=== PATIENT | female | born 1995 | race Caucasian/White ===

== ENCOUNTER 2016-07-11 20:41 | Emergency (ER) | payer OTHER ==
[2016-07-11 21:30] VITALS: BP 145/91
[2016-07-11] MEDS ORDERED: Acetaminophen 500 MG Tab PO ONE (22:26)
--- NOTE | 2016-07-11 22:32 | EDM.PDOC ---
ED HPI GENERAL MEDICAL PROBLEM - General Chief Complaint: [employer] Problem Stated Complaint: PAIN Time Seen by Provider: 07/11/16 22:21 Source of Information: Reports: Patient History Limitations: Reports: No Limitations - History of Present Illness INITIAL COMMENTS - FREE TEXT/NARRATIVE: 21 yr old female reporting the 'inside of my uterus hurts' and describes cramping sensation for the past couple of hours. Pt is unsure if she is or not. LMP sometime between 05/29/2016 and 06/05/2016. Not on control and sexually active. Had a Nexplanon implant but was removed September 2015. No vaginal irritation, discharge or other concerns. No meds tried at home for symptoms after started. Unsure if urinary symptoms when asked. Thinks last bowel movement was yesterday PM or this AM; denies any constipation or diarrhea concerns.No fever, chills, nausea or vomiting. Also has right shoulder pain. Started after she arrived in ER. Hurts more with movement and laughing. 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 Onset: Today Duration: Hour(s):, Waxing/Waning Quality: Reports: Other (cramping) Improves with: Reports: Rest Worsens with: Reports: Movement Associated Symptoms: Reports: No Other Symptoms Abdomen Pain Score (Numeric/FACES): 9 - Related Data Allergies Allergy/AdvReac Type Severity Reaction Status Date / Time No Known Allergies Allergy Verified 03/23/15 19:44 Past Medical History HEENT History: Reports: Impaired Vision [employer] History: Reports: Psychiatric History: Reports: Anxiety Social & Family History - Tobacco Use Smoking Status *Q: Never Smoker Second Hand Smoke Exposure: Yes - Caffeine Use Caffeine Use: Reports: Soda - Alcohol Use Days Per Week of Alcohol Use: 0 - Recreational Drug Use Recreational Drug Use: No ED ROS GENERAL - Review of Systems Review Of Systems: ROS reveals no pertinent complaints other than HPI. ED EXAM, RENAL/ - Physical Exam Exam: See Below Exam Limited By: No Limitations General Appearance: Alert, Anxious (speech rate increased and more pt describes symptoms the quicker her rate becomes.) Nose: Normal Inspection Throat/Mouth: Normal Inspection Head: Atraumatic Neck: Normal Inspection, Supple, Full Range of Motion Respiratory/Chest: No Respiratory Distress, Lungs Clear, Normal Breath Sounds Cardiovascular: Regular Rate, Rhythm GI/Abdominal: Normal Bowel Sounds, Soft, No Distention (obese) (Female) Exam: Deferred Back Exam: Normal Inspection, Full Range of Motion Extremities: Normal Inspection, Normal Range of Motion, No Pedal Edema Neurological: Alert, Oriented, Normal Cognition, Normal Gait, No Motor/Sensory Deficits, Inattentive (appears distracted by child in room. ) Psychiatric: Anxious Skin Exam: Warm, Dry, Normal Color, No Rash Course - Vital Signs Last Recorded V/S: Last Vital Signs Temp 37.5 C 07/11/16 22:28 Pulse 127 H 07/11/16 22:28 Resp 18 07/11/16 22:28 BP 145/91 H 07/11/16 22:28 Pulse Ox 99 07/11/16 22:28 - Orders/Labs/Meds Labs: Laboratory Tests 07/11/16 07/11/16 Range/Units 22:21 22:22 Urine Color Yellow Urine Appearance Clear Urine pH 5.0 (4.5-8.0) Ur Specific [place] 1.025 (1.008-1.030) Urine Protein Negative (NEGATIVE) mg/dL Urine Glucose (UA) Normal (NEGATIVE) mg/dL Urine Ketones Negative (NEGATIVE) mg/dL Urine Occult Blood Negative (NEGATIVE) Urine Nitrite Negative (NEGATIVE) Urine Bilirubin Negative (NEGATIVE) Urine Urobilinogen Normal (NORMAL) mg/dL Ur Leukocyte Esterase Negative (NEGATIVE) Urine RBC 0-5 (0-5) Urine WBC 0-5 (0-5) Ur Epithelial Cells Few Amorphous Sediment Not seen Urine Bacteria Moderate Urine Mucus Moderate Urine HCG, Qual Negative Meds: Medications Discontinued Medications Generic Name Dose Route Start Last Admin Trade Name Rachelle PRN Reason Stop Dose Admin Acetaminophen 1,000 mg 07/11/16 22:26 07/11/16 22:31 Tylenol Extra Strength PO 07/11/16 22:27 1,000 mg ONETIME ONE Administration - Re-Assessments/Exams Free Text/Narrative Re-Assessment/Exam: 07/11/16 22:33 Pt received 2 Tylenol ES as she had not taken any medications at home and thinks could be . Free Text/Narrative Re-Assessment/Exam: 07/11/16 22:48 Results discussed with patient with significant other present in room with permission. He appeared relieved pt was not but she appears upset and almost tearful. Discussed limitations of test with short duration of late menses, possibly less than 1 week outside of her regular cycle. She understands the need for repeat testing in next week and agrees to arrange in Clinic. Departure - Departure Time of Disposition: 22:42 Disposition: Home, Self-Care 01 Condition: good Clinical Impression: Amenorrhea Shoulder pain, right Qualifiers: Chronicity: acute Qualified Code(s): M25.511 - Pain in right shoulder - Discharge Information Instructions: Test Information Referrals: PCP,None [Primary Care Provider] - Forms: ED Department Discharge Additional Instructions: 1. Tylenol as needed for cramping pains due to missed cycle and concern of . 2. Repeat test if your menstrual cycle does not return in next week. 3. Followup as needed in Clinic. - Problem List & Annotations (1) Shoulder pain, right SNOMED Code(s): 41978772, [id number] Code(s): M25.511 - PAIN IN RIGHT SHOULDER Status: Acute Priority: Medium Current Visit: Yes Qualifiers: Chronicity: acute Qualified Code(s): M25.511 - Pain in right shoulder (2) Amenorrhea SNOMED Code(s): 26387806, 406697398 Code(s): N91.2 - AMENORRHEA, UNSPECIFIED Status: Acute Priority: Medium Current Visit: Yes - Problem List Review Problem List Initiated/Reviewed/Updated: Yes
== END 2016-07-11 22:49 | disposition home or self-care (01) ==
LOC: JP.ED 20:41
DX: N91.2 Amenorrhea, unspecified (principal); M25.511 Pain in right shoulder
CPT/HCPCS: 81001; 81025; 99284; A9270

== ENCOUNTER 2024-11-06 22:13 | Emergency (ER) | payer SELFPAY ==
[2024-11-06 22:31] VITALS: BP 146/87; PULSE 106
[2024-11-06 23:18] LABS: BASOPHILS ABSOLUTE AUTO 0.08 K/uL (0.00-0.10); BASOPHILS PERCENT AUTO 0.5 % (0.1-1.3); EOSINOPHILS ABSOLUTE AUTO 0.30 K/uL (0.00-0.40); EOSINOPHILS PERCENT AUTO 1.9 % (0.0-5.4); IMMATURE GRAN ABSOLUTE AUTO 0.29 K/uL (0.00-0.23); IMMATURE GRAN PERCENT AUTO 1.8 % (0.0-0.7); LYMPHOCYTES ABSOLUTE AUTO 3.26 K/uL (0.8-3.3); LYMPHOCYTES PERCENT AUTO 20.2 % (11.4-47.7); MONOCYTES ABSOLUTE AUTO 1.01 K/uL (0.20-0.90); MONOCYTES PERCENT AUTO 6.2 % (3.3-12.6); NEUTROPHILS ABSOLUTE AUTO 11.23 K/uL (1.0-7.6); NEUTROPHILS PERCENT AUTO 69.4 % (40.0-78.1); PLATELET COUNT,PLT 289 K/uL (130-375); RED BLOOD CELL COUNT 3.94 M/uL (3.77-5.24); WHITE BLOOD CELL COUNT,WBC 16.2 K/uL (3.2-11.0)
[2024-11-07 01:06] LABS: APPEARANCE,URINE SLIGHTLY CLOUDY (CLEAR); GLUCOSE,URINE NEGATIVE (NEGATIVE); OCCULT BLOOD,URINE MODERATE (NEGATIVE)
[2024-11-07 01:15] LABS: SQUAMOUS EPITHELIAL CELLS,UR FEW /HPF; UROTHELIAL CELLS,URINE NOT SEEN /HPF
== END 2024-11-07 01:46 | disposition home or self-care (01) ==
LOC: JP.ED 22:13
DX: O26.853 Spotting complicating pregnancy, third trimester (principal); Z3A.30 30 weeks gestation of pregnancy
CPT/HCPCS: 36415; 76815; 81001; 85025; 87086; 87210; 99283; 99284